=== PATIENT | female | born 1990 | race Caucasian/White ===

== ENCOUNTER 2023-07-02 16:45 | Inpatient (IN) | payer SELFPAY ==
[~2023-07-02 16:45] MED LIST: Iopamidol 300 61% 100 ML VIAL FS ONE
[2023-07-02] MEDS ORDERED: Ketorolac Tromethamine 30 MG (1 mL) VIAL ONE (17:14)
[2023-07-02] MEDS ORDERED: Haloperidol Lactate 5 MG/ML VIAL ONE (17:20)
[2023-07-02 17:30] LABS: Actual Bicarbonate (HCO3v) 18.5 mEq/L (22-28); Analyzer IN Cardio CS ER; Base Excess -6.5 mEq/L (-2 - +2); Calcium, Ionized (venous) 0.97 mmol/L (1.16-1.32); Chloride (VBG) 103 mmol/L (98-106); Hematocrit-VBG 39 % (36.0-47.0); Hemoglobin (Hb) 13.4 g/dL (11.7-15.5); Potassium (VBG) 3.44 mmol/L (3.70-5.30); Puncture Site Other Site; RapidComm Collect By LAB; Sodium 138 mmol/L (133-146); pH (venous) 7.339 (7.32-7.43)
[2023-07-02 17:50] LABS: Hematocrit 36.3 % (34.9-44.5); Hemoglobin 12.6 g/dL (12.0-15.5); Mean Corpuscular HGB CONC 34.7 g/dL (32.0-36.0); Mean Corpuscular Hemoglobin 29.4 pg (27.0-33.0); Mean Corpuscular Volume 84.8 fl (81.6-98.3); Mean Platelet Volume 12.1 fl (7.4-10.4); Platelet Count 148 10x3/uL (150-450); RBC Distribution Width 12.7 % (11.5-14.5); Red Blood Cell (RBC) Count 4.28 10x6/uL (3.90-5.03); White Blood Cell (WBC) Count 18.2 10x3/uL (3.5-10.5)
[2023-07-02 18:00] LABS: ALT (SGPT) 12 U/L (8-55); AST (SGOT) 17 U/L (5-34); Albumin 3.8 g/dL (3.5-5.0); Alkaline Phosphatase 66 U/L (40-110); Anion Gap 15 mmol/L (10-20); BUN (Urea Nitrogen) 10 mg/dL (7.0-18.7); Bilirubin, Total 0.3 mg/dL (0.2-1.2); Calc. Creatinine Clearance 0 mL/min (70-130); Calcium 7.7 mg/dL (7.8-10.44); Carbon Dioxide 19 mmol/L (22-29); Chloride 107 mmol/L (98-107); Estimated GFR 70; Globulin 3.1 g/dL (2.4-3.5); Glucose 104 mg/dL (70-105); Potassium 3.4 mmol/L (3.5-5.1); Protein, Total 6.9 g/dL (6.0-8.3); Sodium 138 mmol/L (136-145)
[2023-07-02 18:04] LABS: Band 18 % (5-11); Lymphocytes 7 % (21-51); Monocytes 9 % (0-10)
[2023-07-02 18:05] LABS: Neutrophil 66 % (42-75)
[2023-07-02 18:06] LABS: Large Platelets SLIGHT (None Seen); Platelet Adequacy Comment Appears Adequate; RBC Morph Comment Within Normal Limits
[2023-07-02 18:06] LABS: BHCG - Serum Negative (NEGATIVE); Pregs Control Background? CLEAR/WHITE (CLR/WHITE); Pregs Control Bar Appear? YES (CONTROL BAR)
[2023-07-02 18:07] LABS: MDiff Complete? YES
[2023-07-02] MEDS ORDERED: NOREPINEPHRINE 8 MG/250 ML-D5W 250 ML ONE (19:05)
[2023-07-02] MEDS ORDERED: Acetaminophen 650 MG Suppository PR PRN (19:49)
[2023-07-02] MEDS ORDERED: Senokot S 8.6-50 MG TAB PO PRN (19:49)
[2023-07-02] MEDS ORDERED: Bisacodyl 5 MG TAB PO PRN (19:49)
[2023-07-02] MEDS ORDERED: Morphine 2 MG/ML VIAL SLOW IVP PRN (19:52)
[2023-07-02] MEDS ORDERED: Piperacillin/Tazobactam 4.5 GM VIAL ONE (20:11)
[2023-07-02 20:24] LABS: Magnesium 1.2 mg/dL (1.6-2.6); Phosphorus 2.8 mg/dL (2.3-4.7)
[2023-07-02 21:16] LABS: Lactic Acid 0.7 mmol/L (0.5-2.2)
[2023-07-02 22:11] VITALS: BMI 30.7
[2023-07-02 22:21] LABS: Bilirubin Neg (Negative); Blood, Urine 10 (Negative); Clarity Slightly Cloudy (Clear); Glucose, Urine (Dipstick) Normal (Negative); Ketone, Urine 50 mg/dL (Negative); Leukocyte 100 (Negative); Nitrite Negative (Negative); Protein, Urine (Dipstick) 100 mg/dl (Neg-Trace); Specific Gravity, Urine 1.015 (1.005-1.030); Urobilinogen Normal mg/dL (Less than 2)
[2023-07-02 22:45] LABS: Bacteria/HPF Rare-Few HPF (None Seen); RBC/HPF 0-3 HPF (0-3); Squamous Epithelial 0-3 HPF (0-3)
[2023-07-02] MEDS: Magnesium 2 GM/50 ML(in water) 2 GM in Premix 1 BAG IVPB SCH (22:56)
[2023-07-02] MEDS: Acetaminophen 325 MG TAB PO PRN (22:57)
[2023-07-02] MEDS: Ketorolac Tromethamine 30 MG (1 mL) VIAL IVP SCH (22:59)
[2023-07-02] MEDS ORDERED: Potassium Chloride 20 MEQ TAB PO SCH (23:00)
[2023-07-02] MEDS ORDERED: Electrolyte Replacement Protocol 1 EACH FS PRN (23:00)
[2023-07-02] MEDS ORDERED: NOREPINEPHRINE 8 MG/250 ML-D5W 250 ML IVPB SCH (23:00)
[2023-07-02] MEDS ORDERED: cefTRIAXone\\ROCEPHIN 2 GM in Sodium Chloride 0.9% 100 ML IVPB SCH (23:00)
[2023-07-02] MEDS ORDERED: Famotidine 20 MG TAB PO SCH (23:00)
[2023-07-02] MEDS ORDERED: Enoxaparin 40 MG (0.4 mL) SYRINGE SC SCH (23:00)
[2023-07-03] MEDS: Magnesium 2 GM/50 ML(in water) 2 GM in Premix 1 BAG IVPB SCH (01:11)
[2023-07-03 03:50] LABS: Hematocrit 32.9 % (34.9-44.5); Hemoglobin 11.4 g/dL (12.0-15.5); Mean Corpuscular HGB CONC 34.7 g/dL (32.0-36.0); Mean Corpuscular Hemoglobin 29.5 pg (27.0-33.0); Mean Corpuscular Volume 85.2 fl (81.6-98.3); Mean Platelet Volume 11.8 fl (7.4-10.4); Platelet Count 153 10x3/uL (150-450); RBC Distribution Width 12.8 % (11.5-14.5); Red Blood Cell (RBC) Count 3.86 10x6/uL (3.90-5.03); White Blood Cell (WBC) Count 24.7 10x3/uL (3.5-10.5)
[2023-07-03 03:53] LABS: MDiff Complete? YES
[2023-07-03 03:58] LABS: Phosphorus 2.6 mg/dL (2.3-4.7)
[2023-07-03 03:59] LABS: Anion Gap 12 mmol/L (10-20); BUN (Urea Nitrogen) 10 mg/dL (7.0-18.7); Calc. Creatinine Clearance 122 mL/min (70-130); Calcium 7.5 mg/dL (7.8-10.44); Carbon Dioxide 18 mmol/L (22-29); Chloride 111 mmol/L (98-107); Estimated GFR 87; Glucose 134 mg/dL (70-105); Magnesium 2.9 mg/dL (1.6-2.6); Potassium 4.2 mmol/L (3.5-5.1); Sodium 137 mmol/L (136-145)
[2023-07-03] MEDS: Ketorolac Tromethamine 30 MG (1 mL) VIAL IVP SCH ×4 (04:59→23:05)
[2023-07-03] MEDS: Ondansetron PF 4 MG/2 ML Vial IVP PRN ×3 (04:59→16:37)
[2023-07-03 06:07] LABS: Band 6 % (5-11); Lymphocytes 11 % (21-51); Monocytes 2 % (0-10); Neutrophil 81 % (42-75)
[2023-07-03 06:10] LABS: Platelet Adequacy Comment Appears Adequate
[2023-07-03] MEDS: Enoxaparin 40 MG (0.4 mL) SYRINGE SC SCH (08:10)
[2023-07-03] MEDS: Famotidine 20 MG TAB PO SCH ×2 (08:10→20:03)
[2023-07-03] MEDS: Famotidine/PF 20 mg/2ml Vial SLOW IVP SCH ×2 (09:29→20:04)
[2023-07-03] MEDS: Sodium Chloride 0.9% 1,000 ML IV SCH ×3 (09:45→20:03)
[2023-07-03] MEDS ORDERED: Meropenem 1 GM in Sodium Chloride 0.9% 100 ML IVPB SCH (10:30)
[2023-07-03] MEDS: Acetaminophen 325 MG TAB PO PRN ×2 (10:46→14:27)
[2023-07-03 14:01] LABS: Chlam.trachomatis by PCR,Urine Not Detected (NotDetected); GC N.gonorrhoeae PCR,UrineVOID Not Detected (NotDetected)
[2023-07-03] MEDS: Meropenem 1 GM in Sodium Chloride 0.9% 100 ML IVPB SCH (17:57)
[2023-07-03] MEDS: HYDROcodone/Acetaminophen 5/325 mg Tablet PO PRN (21:43)
[2023-07-04] MEDS: Meropenem 1 GM in Sodium Chloride 0.9% 100 ML IVPB SCH ×3 (01:49→17:28)
[2023-07-04] MEDS: Sodium Chloride 0.9% 1,000 ML IV SCH ×5 (01:49→23:24)
[2023-07-04] MEDS: Acetaminophen 325 MG TAB PO PRN ×2 (01:54→16:09)
[2023-07-04 03:47] LABS: Hematocrit 29.2 % (34.9-44.5); Hemoglobin 9.9 g/dL (12.0-15.5); Mean Corpuscular HGB CONC 33.9 g/dL (32.0-36.0); Mean Corpuscular Hemoglobin 28.5 pg (27.0-33.0); Mean Corpuscular Volume 84.1 fl (81.6-98.3); Mean Platelet Volume 12.4 fl (7.4-10.4); Platelet Count 132 10x3/uL (150-450); RBC Distribution Width 13.2 % (11.5-14.5); Red Blood Cell (RBC) Count 3.47 10x6/uL (3.90-5.03); White Blood Cell (WBC) Count 16.5 10x3/uL (3.5-10.5)
[2023-07-04 03:57] LABS: Anion Gap 10 mmol/L (10-20); BUN (Urea Nitrogen) 7 mg/dL (7.0-18.7); Calc. Creatinine Clearance 174 mL/min (70-130); Carbon Dioxide 19 mmol/L (22-29); Chloride 111 mmol/L (98-107); Estimated GFR 120; Glucose 101 mg/dL (70-105); Potassium 3.6 mmol/L (3.5-5.1); Sodium 136 mmol/L (136-145)
[2023-07-04 03:59] LABS: Calcium 6.9 mg/dL (7.8-10.44)
[2023-07-04 04:16] LABS: Band 19 % (5-11); Eosinophils 1 % (0-10); Lymphocytes 10 % (21-51); Monocytes 2 % (0-10); Reactive Lymphocytes 5 % (0-10)
[2023-07-04 04:18] LABS: Crenated RBC SLIGHT = 1-5 cells (100X) (None Seen); Poikilocytosis SLIGHT = 6-15 cells (100X) (0-5/hpf)
[2023-07-04 04:19] LABS: Giant Platelets SLIGHT HPF (0-5); Platelet Adequacy Comment Appears Adequate
[2023-07-04 04:29] LABS: MDiff Complete? YES
[2023-07-04] MEDS ORDERED: Calcium Gluconate 4.6 MEQ in Sodium Chloride 0.9% 100 ML IVPB SCH (04:45)
[2023-07-04] MEDS: Ketorolac Tromethamine 30 MG (1 mL) VIAL IVP SCH ×4 (05:22→23:23)
[2023-07-04] MEDS: Calcium Carbonate 500 MG ChewTAB PO SCH ×4 (05:22→16:24)
[2023-07-04] MEDS: HYDROcodone/Acetaminophen 5/325 mg Tablet PO PRN (07:18)
[2023-07-04] MEDS: Enoxaparin 40 MG (0.4 mL) SYRINGE SC SCH (08:04)
[2023-07-04] MEDS: Famotidine 20 MG TAB PO SCH ×2 (08:05→20:27)
[2023-07-04] MEDS: Famotidine/PF 20 mg/2ml Vial SLOW IVP SCH ×2 (09:03→20:25)
[2023-07-04] MEDS ORDERED: Calcium Carbonate 600 MG + Vit D TAB PO SCH (11:00)
[2023-07-04] MEDS: Ondansetron PF 4 MG/2 ML Vial IVP PRN (15:12)
[2023-07-04] MEDS: Ondansetron ODT 4 MG TAB PO PRN (16:09)
[2023-07-04] MEDS: Calcium Carbonate 600 MG + Vit D TAB PO SCH (16:52)
[2023-07-04] MEDS ORDERED: Scopolamine 1 mg/72 hour Patch TD SCH (17:30)
[2023-07-05] MEDS: Meropenem 1 GM in Sodium Chloride 0.9% 100 ML IVPB SCH ×3 (02:31→17:30)
[2023-07-05] MEDS: Ondansetron PF 4 MG/2 ML Vial IVP PRN ×5 (02:48→23:20)
[2023-07-05 03:29] LABS: #Basophils 0.1 10x3/uL (0.0-0.2); #Eosinphils 0.2 10x3/uL (0.0-0.5); %Basophils 0.4 % (0.0-2.0); %Eosinophils 1.1 % (0.0-6.0); %Lymphocytes 15.6 % (18.0-47.0); %Monocytes 6.3 % (0.0-10.0); %Neutrophils 75.6 % (40.0-75.0); Hematocrit 32.7 % (34.9-44.5); Hemoglobin 11.1 g/dL (12.0-15.5); Mean Corpuscular HGB CONC 33.9 g/dL (32.0-36.0); Mean Corpuscular Hemoglobin 28.8 pg (27.0-33.0); Mean Corpuscular Volume 84.9 fl (81.6-98.3); Mean Platelet Volume 12.4 fl (7.4-10.4); Platelet Count 227 10x3/uL (150-450); RBC Distribution Width 13.3 % (11.5-14.5); Red Blood Cell (RBC) Count 3.85 10x6/uL (3.90-5.03); White Blood Cell (WBC) Count 15.9 10x3/uL (3.5-10.5)
[2023-07-05 03:45] LABS: Anion Gap 13 mmol/L (10-20); BUN (Urea Nitrogen) 7 mg/dL (7.0-18.7); Calc. Creatinine Clearance 175 mL/min (70-130); Calcium 7.9 mg/dL (7.8-10.44); Carbon Dioxide 19 mmol/L (22-29); Chloride 111 mmol/L (98-107); Estimated GFR 119; Glucose 97 mg/dL (70-105); Potassium 3.6 mmol/L (3.5-5.1); Sodium 139 mmol/L (136-145)
[2023-07-05] MEDS: Ketorolac Tromethamine 30 MG (1 mL) VIAL IVP SCH ×4 (05:11→23:20)
[2023-07-05] MEDS: Acetaminophen 325 MG TAB PO PRN ×2 (05:12→18:51)
[2023-07-05] MEDS: Famotidine 20 MG TAB PO SCH ×2 (07:53→21:14)
[2023-07-05] MEDS: Enoxaparin 40 MG (0.4 mL) SYRINGE SC SCH (07:53)
[2023-07-05] MEDS: Calcium Carbonate 600 MG + Vit D TAB PO SCH ×2 (07:53→17:29)
[2023-07-05] MEDS: Famotidine/PF 20 mg/2ml Vial SLOW IVP SCH ×2 (07:54→23:26)
[2023-07-05] MEDS: Sodium Chloride 0.9% 1,000 ML IV SCH ×2 (10:36→17:46)
[2023-07-06] MEDS: Meropenem 1 GM in Sodium Chloride 0.9% 100 ML IVPB SCH ×2 (02:31→09:29)
[2023-07-06] MEDS: Acetaminophen 325 MG TAB PO PRN ×2 (03:51→15:28)
[2023-07-06] MEDS: Ondansetron ODT 4 MG TAB PO PRN ×2 (03:54→11:28)
[2023-07-06 05:18] LABS: #Basophils 0.1 10x3/uL (0.0-0.2); #Eosinphils 0.2 10x3/uL (0.0-0.5); #Monocytes 0.8 10x3/uL (0.0-1.1); #Neutrophils 7.6 10x3/uL (1.5-8.4); %Basophils 0.5 % (0.0-2.0); %Eosinophils 1.5 % (0.0-6.0); %Monocytes 8.1 % (0.0-10.0); %Neutrophils 73.3 % (40.0-75.0); Hemoglobin 10.3 g/dL (12.0-15.5); Mean Corpuscular HGB CONC 34.3 g/dL (32.0-36.0); Mean Corpuscular Hemoglobin 28.9 pg (27.0-33.0); Mean Platelet Volume 11.5 fl (7.4-10.4); Platelet Count 235 10x3/uL (150-450); RBC Distribution Width 13.3 % (11.5-14.5); Red Blood Cell (RBC) Count 3.57 10x6/uL (3.90-5.03); White Blood Cell (WBC) Count 10.3 10x3/uL (3.5-10.5)
[2023-07-06 05:35] LABS: Anion Gap 11 mmol/L (10-20); BUN (Urea Nitrogen) 4 mg/dL (7.0-18.7); Calc. Creatinine Clearance 170 mL/min (70-130); Calcium 7.9 mg/dL (7.8-10.44); Carbon Dioxide 21 mmol/L (22-29); Chloride 111 mmol/L (98-107); Estimated GFR 118; Glucose 106 mg/dL (70-105); Potassium 3.6 mmol/L (3.5-5.1); Sodium 139 mmol/L (136-145)
[2023-07-06] MEDS: Ketorolac Tromethamine 30 MG (1 mL) VIAL IVP SCH ×2 (05:53→11:28)
[2023-07-06] MEDS ORDERED: Famotidine/PF 20 mg/2ml Vial SLOW IVP PRN (07:15)
[2023-07-06] MEDS: Famotidine 20 MG TAB PO SCH (09:29)
[2023-07-06] MEDS: Enoxaparin 40 MG (0.4 mL) SYRINGE SC SCH (09:29)
[2023-07-06] MEDS: Calcium Carbonate 600 MG + Vit D TAB PO SCH (09:29)
[2023-07-06] MEDS: Sodium Chloride 0.9% 1,000 ML IV SCH (09:29)
[2023-07-06 17:07] VITALS: BP 118/78; TEMP 98.9
== END 2023-07-06 19:00 | disposition home or self-care (01) | DRG 871 ==
LOC: CSHERS 16:45 → CSHICU 22:04 → CSHTELE 07-05 15:44
PROVIDERS: ADMIT Family Medicine; ATTEND Internal Medicine
PROC: 4A043R1 Measurement of Venous Saturation, Peripheral, Percutaneous Approach (ICD-10-PCS; principal; 2023-07-02)
PROC: 3E033XZ Introduction of Vasopressor into Peripheral Vein, Percutaneous Approach (ICD-10-PCS; 2023-07-02)
PROC: 3E03329 Introduction of Other Anti-infective into Peripheral Vein, Percutaneous Approach (ICD-10-PCS; 2023-07-02)
DX: A41.9 Sepsis, unspecified organism (principal); R65.21 Severe sepsis with septic shock; N12 Tubulo-interstitial nephritis, not specified as acute or chronic; Z79.899 Other long term (current) drug therapy; E87.6 Hypokalemia
CPT/HCPCS: 36415; 36556; 71045; 71260; 74177; 80048; 80053; 81001; 82306; 82805; 83605; 83735; 84100; 84145; 84703; 85025; 87040; 87086; 87491; 87591; 96361; 96365; 96375; J0612; J0696; J1630; J1650; J1885; J2185; J2405; J2543; J3475; J3490; J7050; Q0162; Q9967